=== PATIENT | male | born 1980 | race Caucasian/White ===

== ENCOUNTER 2023-02-09 16:22 | Emergency (ER) | payer OTHER ==
[~2023-02-09] VITALS: Ht 177.8 cm; Wt 95.0 kg
[2023-02-09] MEDS ORDERED: LUMA42CA PO (16:29)
[2023-02-09 19:09] VITALS: BP 124/80
[2023-02-09] MEDS ORDERED: MethylPREDNISolone SOD SUCC 125 MG/2 ML VIAL IM ONE (19:45)
== END 2023-02-09 20:06 | disposition left against medical advice (07) ==
LOC: EMS 16:23
DX: R19.7 Diarrhea, unspecified (principal); M10.072 Idiopathic gout, left ankle and foot; F31.9 Bipolar disorder, unspecified; F12.90 Cannabis use, unspecified, uncomplicated; Z90.49 Acquired absence of other specified parts of digestive tract; Z98.890 Other specified postprocedural states; Z88.8 Allergy status to other drugs, medicaments and biological substances
CPT/HCPCS: 99283; 96372; J2930